=== PATIENT | male | born 2000 | race Two or more races ===

== ENCOUNTER 2024-12-19 06:00 | Day surgery (SDC) | payer OTHER ==
[~2024-12-19 06:00] MED LIST: ADDERALL 10 MG10 MG PO; PROTONIX40 MG PO
[2024-12-19] MEDS ORDERED: LIDOCAINE HCL 1%/EPINEPHRINE 20ML VIAL IJ ONE (07:30)
[2024-12-19] MEDS ORDERED: CEFAZOLIN SODIUM 1,000 MG VIAL IV ONE (07:30)
[2024-12-19] MEDS ORDERED: POVIDONE-IODINE 118 ML BOTT TOP ONE (07:30)
[2024-12-19] MEDS ORDERED: MOMETASONE FUROATE 17GM SPRAY NASAL ONE (09:00)
[2024-12-19] MEDS ORDERED: CEPHALEXIN500 MG PO (09:35)
[2024-12-19] MEDS ORDERED: MORPHINE SULFATE 4 MG/ML VIAL IV ONE ×2 (09:50→11:05)
== END 2024-12-19 12:05 | disposition home or self-care (01) ==
LOC: CIR.AMB 06:00
PROVIDERS: ATTEND Otolaryngology Otology & Neurotology
DX: J34.2 Deviated nasal septum (principal); J34.3 Hypertrophy of nasal turbinates; R09.81 Nasal congestion